=== PATIENT | female | born 1985 | race Caucasian/White ===

== ENCOUNTER 2020-01-09 09:30 | Emergency (ER) | payer OTHER, SELFPAY ==
--- NOTE | ~2020-01-09 | XR_ITS ---
EXAMINATION: XR chest 2V DATE: 01/09/2020 10:00 INDICATION: Cough. COVID-19 positive. TECHNIQUE: Frontal and lateral views of the chest were obtained. COMPARISON: Chest 2 views 05/09/2018 FINDINGS: The chest demonstrates clear lungs without pneumonia, pleural effusion, or pneumothorax. Th e heart size is normal. IMPRESSION: 1. No acute cardiopulmonary disease. Reviewed, dictated and finalized at location A.
[2020-01-09 09:40] VITALS: BP 133/92; PULSE 89; RESP 16; TEMP 36.8; O2SAT 100
--- NOTE | 2020-01-09 09:56 | ED.URI ---
HPI - URI/Sore Throat General Chief Complaint: Upper Respiratory Infection Stated Complaint: Complications from Covid Time Seen by Provider: 01/09/20 09:43 Source: patient and RN notes reviewed Mode of arrival: ambulatory Limitations: no limitations History of Present Illness HPI Narrative: Patient presents today complaining of a persistent cough since December 19. It is occasionally productive. She has intermittent shortness of breath. Patient was diagnosed with COVID-19 on 12/28/2019 at the [facility] in [place]. States that her cough has been improving, but then has been worsening again. She continues to have an intermittent fever. Last episode of fever was 2 days ago. She had a telephone visit with her doctor 3 days ago and was told to come to urgent care for further evaluation of her cough to make sure she did not have pneumonia. She has been taking Tylenol and Robitussin without relief. She does have an albuterol inhaler, but has not used it for the past 2 weeks. MD elicited complaint: cough Related Data Home Medications Medication Instructions Recorded Confirmed albuterol sulfate 2 inh INHALATION DIRECTED 01/09/20 01/09/20 dicyclomine 20 mg PO DAILY 01/09/20 01/09/20 omeprazole 40 mg PO DAILY 01/09/20 01/09/20 Allergies Allergy/AdvReac Type Severity Reaction Status Date / Time No Known Allergies Allergy Verified 01/09/20 09:34 Review of Systems Review of Systems: Narrative: CONSTITUTIONAL: Denies body aches, chills, or sweats. + Intermittent fever EYES: Denies visual changes, redness, or discharge. ENT: Denies rhinorrhea, sore throat, or otalgia. + Congestion CARDIOVASCULAR: Denies chest pain, palpitations, or edema. RESPIRATORY: + Cough, shortness of breath. GASTROINTESTINAL: Denies abdominal pain, nausea, vomiting, or diarrhea. GENITOURINARY: Denies dysuria or hematuria. SKIN: Denies rash, itching, or wounds. MUSCULOSKELETAL: Denies back pain, joint pain, or myalgia. NEUROLOGIC: Denies headache, numbness, tingling, or weakness. PSYCH: Denies depression or anxiety. [facility] Social History Social History (Updated 01/09/20 @ 09:59 by Jennifer Gloria, [employer], ) Smoking status: Never smoker Comments At time of signature, I have reviewed and agree with nursing past medical, surgical, social and family history unless otherwise noted. Please see nursing chart for further information. There is no relevant family history pertinent to the presenting complaint Exam Narrative: Exam Narrative: GENERAL: Well-appearing, well-nourished, and in no acute distress. HEAD: Normocephalic, atraumatic. EYES: EOMI. No redness or drainage. Conjunctivae normal. ENT: Mucous membranes pink and moist. Nares clear. No rhinorrhea. TMs normal bilaterally. Throat normal. Uvula midline. NECK: Normal AROM. Supple. No lymphadenopathy. CHEST: No respiratory distress. Clear to auscultation. Frequent dry cough noted. HEART: Regular rate and rhythm. No murmur appreciated. Normal peripheral pulses. EXTREMITIES: Normal range of motion. No edema. SKIN: Warm, dry, no rash. Capillary refill normal. Normal skin turgor. NEURO: No focal deficits. Alert and oriented x3. Gait steady. PSYCH: Normal affect. No signs of depression or anxiety. Course Vital Signs Vital signs: Vital Signs Temperature 98.2 F 01/09/20 09:40 Pulse Rate 89 01/09/20 09:40 Respiratory Rate 16 01/09/20 09:40 Blood Pressure 133/92 H 01/09/20 09:40 Pulse Oximetry 100 01/09/20 09:40 Temperature 98.2 F 01/09/20 09:40 Pulse Rate 89 01/09/20 09:40 Respiratory Rate 16 01/09/20 09:40 Blood Pressure 133/92 H 01/09/20 09:40 Pulse Oximetry 100 01/09/20 09:40 Reviewed. Pt has been instructed to follow up with her PCP regarding her elevated blood pressure today. MDM - URI/Sore Throat Differential Diagnosis Differential diagnosis: Likely upper respiratory infection, sinusitis, bronchitis and other (Pneumonia) Imaging Data Radiolog
== END 2020-01-09 10:19 | disposition home or self-care (01) ==
PROVIDERS: Emergency Provider Nurse Practitioner
DX: R05 Cough (principal); J40 Bronchitis, not specified as acute or chronic
CPT/HCPCS: 71046; 99213; G0463